=== PATIENT | male | born 1975 | race Two or more races ===

== ENCOUNTER 2018-03-26 09:22 | Emergency (ER) | payer SELFPAY ==
[2018-03-26 09:40] VITALS: BP 122/74; PULSE 72; TEMP 98.3; BMI 27.3
[2018-03-26] MEDS ORDERED: KETOROLAC TROMETHAMINE 60 MG/2 ML VIAL IM ONE (10:04)
[2018-03-26] MEDS ORDERED: KETOROLAC TROMETHAMINE 60 MG/2 ML VIAL ONE (10:09)
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
== END 2018-03-26 10:54 | disposition home or self-care (01) ==
LOC: JERFT 09:22
PROC: 3E0233Z Introduction of Anti-inflammatory into Muscle, Percutaneous Approach (ICD-10-PCS; principal; 2018-03-26)
DX: S40.012A Contusion of left shoulder, initial encounter (principal); S10.93XA Contusion of unspecified part of neck, initial encounter; Y04.2XXA Assault by strike against or bumped into by another person, initial encounter; Y93.89 Activity, other specified; Y92.89 Other specified places as the place of occurrence of the external cause; Y99.8 Other external cause status; Y07.9 Unspecified perpetrator of maltreatment and neglect
CPT/HCPCS: 72050-TC-FY; 73010-TC-FY; 73030-TC-LT-FY; 99281-25

== ENCOUNTER 2018-04-21 10:07 | Emergency (ER) | payer OTHER ==
[2018-04-21 10:13] VITALS: BP 126/78; PULSE 95; TEMP 97.5; BMI 27.3
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
[2018-04-21] MEDS ORDERED: KETOROLAC TROMETHAMINE 60 MG/2 ML VIAL IM ONE (11:04)
[2018-04-21] MEDS ORDERED: DEXAMETHASONE SOD PHOSPHATE 10 MG/1 ML VIAL IM ONE (11:04)
[2018-04-21] MEDS ORDERED: DEXAMETHASONE SOD PHOSPHATE 10 MG/1 ML VIAL ONE (11:05)
[2018-04-21] MEDS ORDERED: KETOROLAC TROMETHAMINE 60 MG/2 ML VIAL ONE (11:05)
== END 2018-04-21 11:23 | disposition home or self-care (01) ==
LOC: JERFT 10:07
PROC: 3E0233Z Introduction of Anti-inflammatory into Muscle, Percutaneous Approach (ICD-10-PCS; principal; 2018-04-21)
PROC: 3E0233Z Introduction of Anti-inflammatory into Muscle, Percutaneous Approach (ICD-10-PCS; 2018-04-21)
DX: M54.6 Pain in thoracic spine (principal); M25.512 Pain in left shoulder; Y04.2XXD Assault by strike against or bumped into by another person, subsequent encounter
CPT/HCPCS: 96372; 99281-25; J1100

== ENCOUNTER 2018-04-24 22:36 | Emergency (ER) | payer OTHER ==
[2018-04-24 22:45] VITALS: BP 126/77; PULSE 74; TEMP 98; BMI 25.0
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
[2018-04-25] MEDS ORDERED: KETOROLAC TROMETHAMINE 60 MG/2 ML VIAL IM ONE (00:05)
[2018-04-25] MEDS ORDERED: LIDOCAINE 5% TOPICAL PATCH TP ONE (00:15)
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
[2018-04-25] MEDS ORDERED: KETOROLAC TROMETHAMINE 60 MG/2 ML VIAL ONE (00:50)
[2018-04-25] MEDS ORDERED: LIDOCAINE 5% TOPICAL PATCH ONE (00:50)
[2018-04-25] MEDS ORDERED: LIDOCAINE PATCH REMOVAL MC SCH (22:00)
== END 2018-04-25 01:20 | disposition home or self-care (01) ==
LOC: JER 22:36
PROC: 3E0233Z Introduction of Anti-inflammatory into Muscle, Percutaneous Approach (ICD-10-PCS; principal; 2018-04-24)
DX: M54.2 Cervicalgia (principal); M25.512 Pain in left shoulder; M54.6 Pain in thoracic spine; Y04.2XXD Assault by strike against or bumped into by another person, subsequent encounter
CPT/HCPCS: 99281-25

== ENCOUNTER 2018-04-27 18:57 | Emergency (ER) | payer OTHER ==
[2018-04-27 19:02] VITALS: BP 130/78; PULSE 82; TEMP 98.4; BMI 25.0
[2018-04-27 19:26] LABS: URINE APPEARANCE CLEAR; URINE BILIRUBIN NEGATIVE (<2.0 mg/dL); URINE COLOR AMBER; URINE GLUCOSE (UA) NEGATIVE (NEGATIVE); URINE KETONE NEGATIVE (NEGATIVE); URINE LEUK ESTERASE NEGATIVE (NEGATIVE); URINE NITRITE POSITIVE (NEGATIVE); URINE PROTEIN NEGATIVE (NEGATIVE); URINE UROBILINOGEN 4.0 E.U/dl mg/dL (0.2-1.0)
[2018-04-27] MEDS ORDERED: KETOROLAC TROMETHAMINE 60 MG/2 ML VIAL IM ONE (19:27)
[2018-04-27] MEDS ORDERED: KETOROLAC TROMETHAMINE 60 MG/2 ML VIAL ONE (19:28)
[2018-04-27] MEDS ORDERED: AZITHROMYCIN 500 MG TABLET PO ONE (19:28)
[2018-04-27] MEDS ORDERED: AZITHROMYCIN 500 MG TABLET ONE (19:32)
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
== END 2018-04-27 20:30 | disposition home or self-care (01) ==
LOC: JERFT 18:57
PROC: 3E02329 Introduction of Other Anti-infective into Muscle, Percutaneous Approach (ICD-10-PCS; principal; 2018-04-27)
PROC: 3E0233Z Introduction of Anti-inflammatory into Muscle, Percutaneous Approach (ICD-10-PCS; 2018-04-27)
DX: N30.00 Acute cystitis without hematuria (principal); M54.5 Low back pain; M25.512 Pain in left shoulder; G89.29 Other chronic pain
CPT/HCPCS: 36415; 81003; 81015; 87086; 87491; 87591; 96372; 99281-25

== ENCOUNTER 2018-04-30 16:40 | Emergency (ER) | payer OTHER ==
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
[2018-04-30 16:58] VITALS: BP 129/89; PULSE 74; TEMP 98; BMI 27.3
--- NOTE | 2018-04-30 17:13 | PDOC ---
History of Present Illness - General Chief Complaint: Hematuria Stated Complaint: BLOOD IN Urinary Time Seen by Provider: 04/30/18 16:53 - History of Present Illness Initial Comments: 04/30/18 17:11 43-year-old male treated for urinary tract infection 3 days ago presents because he dropped his antibiotics in the toilet 2 days ago he's only taken one days worth of Keflex. He's requesting and striction. He continues to have dysuria Past History - Past Medical History Allergies/Adverse Reactions: Allergies Allergy/AdvReac Type Severity Reaction Status Date / Time No Known Allergies Allergy Verified 04/30/18 16:53 Home Medications: Ambulatory Orders Cyclobenzaprine HCl 10 mg PO TID PRN #9 tablet 04/25/18 Meloxicam 15 mg PO DAILY PRN #3 tablet 04/25/18 Cephalexin [Keflex] 500 mg PO BID #14 capsule 04/27/18 Tramadol HCl 50 mg PO Q6H #15 tablet MDD 200 mg 04/27/18 Cephalexin [Keflex] 500 mg PO QID #28 capsule 04/30/18 Gabapentin 600 mg PO ASDIR 04/30/18 Asthma: No Cancer: No Cardiac Disorders: No CVA: No COPD: No DVT: No Dementia: No Hypercholesterolemia: No Kidney Stones: No Liver Disease: No - Surgical History Cholecystectomy: No GI Surgery: No - Immunization History Td Vaccination: Yes Immunization Up to Date: Yes - Suicide/Smoking/Psychosocial Hx Smoking Status: Yes Smoking History: Current every day smoker Number of Cigarettes Smoked Daily: 4 Information on smoking cessation initiated: No Hx Alcohol Use: No Drug/Substance Use Hx: No Substance Use Type: None Review of Systems - Review of Systems : Yes: Burning, Dysuria *Physical Exam - Vital Signs Last Vital Signs Temp Pulse Resp BP Pulse Ox 98.0 F 74 18 129/89 99 04/30/18 16:54 04/30/18 16:54 04/30/18 16:54 04/30/18 16:54 04/30/18 16:54 - Physical Exam Comments: 04/30/18 17:12 HEAD: NC/AT EYES: Conjuntiva clear MS: Full ROM in all joints without edema NEUROLOGIC: No gross sensory or motor deficits, NVID SKIN: Normal color and temperature no lesions or rashes Medical Decision Making - Medical Decision Making 04/30/18 17:12 I refilled his antibiotics and started the course over again, and referred him to urology *DC/Admit/Observation/Transfer Diagnosis at time of Disposition: Hematuria Qualifiers: Hematuria type: unspecified type Qualified Code(s): R31.9 - Hematuria, unspecified - Discharge Dispostion Disposition: HOME Condition at time of disposition: Stable Decision to Admit order: No - Prescriptions Prescriptions: Cephalexin [Keflex] 500 mg PO QID #28 capsule - Referrals Referrals: Renay Piña MD [Primary Care Provider] - - Patient Instructions Printed Discharge Instructions: Urinary Tract Infection Additional Instructions: Return to the emergency room should symptoms worsen or go unresolved and follow- up with urology as scheduled please take the antibiotics and finish the entire course. - Post Discharge Activity
[2018-04-30 17:16] LABS: URINE APPEARANCE CLEAR; URINE BILIRUBIN NEGATIVE (<2.0 mg/dL); URINE COLOR LTYELLOW; URINE GLUCOSE (UA) NEGATIVE (NEGATIVE); URINE KETONE NEGATIVE (NEGATIVE); URINE LEUK ESTERASE NEGATIVE (NEGATIVE); URINE NITRITE NEGATIVE (NEGATIVE); URINE PROTEIN NEGATIVE (NEGATIVE); URINE UROBILINOGEN NEGATIVE mg/dL (0.2-1.0)
== END 2018-04-30 17:44 | disposition home or self-care (01) ==
LOC: JERFT 16:40
DX: N39.0 Urinary tract infection, site not specified (principal); R31.9 Hematuria, unspecified
CPT/HCPCS: 81003; 99281-25

== ENCOUNTER 2018-05-07 10:57 | Emergency (ER) | payer OTHER ==
[2018-05-07 11:09] VITALS: BP 159/60; PULSE 69; TEMP 98.2; BMI 27.3
[2018-05-07 11:46] LABS: URINE APPEARANCE CLEAR; URINE BILIRUBIN NEGATIVE (<2.0 mg/dL); URINE COLOR COLORLESS; URINE GLUCOSE (UA) NEGATIVE (NEGATIVE); URINE KETONE NEGATIVE (NEGATIVE); URINE LEUK ESTERASE NEGATIVE (NEGATIVE); URINE NITRITE NEGATIVE (NEGATIVE); URINE PROTEIN NEGATIVE (NEGATIVE); URINE UROBILINOGEN NEGATIVE mg/dL (0.2-1.0)
[2018-05-07] MEDS ORDERED: AZITHROMYCIN 250 MG TABLET PO ONE (12:07)
[2018-05-07] MEDS ORDERED: AZITHROMYCIN 250 MG TABLET ONE (12:11)
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
== END 2018-05-07 12:19 | disposition home or self-care (01) ==
LOC: JERFT 10:57
DX: R30.0 Dysuria (principal)
CPT/HCPCS: 36415; 81003; 87086; 87491; 87591; 96372; 99281-25

== ENCOUNTER 2018-05-12 08:18 | Emergency (ER) | payer OTHER ==
[2018-05-12 08:26] VITALS: BP 131/74; PULSE 74; TEMP 98; BMI 27.3
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
[2018-05-12 08:56] LABS: URINE APPEARANCE CLEAR; URINE BILIRUBIN NEGATIVE (<2.0 mg/dL); URINE COLOR STRAW; URINE GLUCOSE (UA) NEGATIVE (NEGATIVE); URINE KETONE NEGATIVE (NEGATIVE); URINE LEUK ESTERASE NEGATIVE (NEGATIVE); URINE NITRITE NEGATIVE (NEGATIVE); URINE PROTEIN NEGATIVE (NEGATIVE); URINE UROBILINOGEN NEGATIVE mg/dL (0.2-1.0)
[2018-05-12] MEDS ORDERED: KETOROLAC TROMETHAMINE 60 MG/2 ML VIAL IM ONE (09:15)
[2018-05-12] MEDS ORDERED: KETOROLAC TROMETHAMINE 60 MG/2 ML VIAL ONE (09:17)
== END 2018-05-12 09:34 | disposition home or self-care (01) ==
LOC: JERFT 08:18
PROC: 3E0233Z Introduction of Anti-inflammatory into Muscle, Percutaneous Approach (ICD-10-PCS; principal; 2018-05-12)
DX: M54.5 Low back pain (principal); M25.512 Pain in left shoulder; G89.29 Other chronic pain; V89.2XXS Person injured in unspecified motor-vehicle accident, traffic, sequela
CPT/HCPCS: 81003; 87086; 96372; 99281-25

== ENCOUNTER 2018-05-15 21:38 | Emergency (ER) | payer OTHER ==
--- NOTE | 2018-05-15 21:55 | PDOC ---
Rapid Medical Evaluation Time Seen by Provider: 05/15/18 21:54 Medical Evaluation: Allergies Allergy/AdvReac Type Severity Reaction Status Date / Time No Known Allergies Allergy Verified 05/12/18 08:26 05/15/18 21:54 I have performed a brief in-person evaluation of this patient. The patient presents with a chief complaint of: acute on chronic back pain Pertinent physical exam findings: diffuse tenderness to lower back I have ordered the following: nothing The patient will proceed to the ED for further evaluation. Discharge Disposition - Diagnosis Back pain - Referrals - Patient Instructions - Post Discharge Activity
[2018-05-15 21:58] VITALS: BP 141/85; PULSE 80; TEMP 98.2; BMI 27.3
[2018-05-15] MEDS ORDERED: KETOROLAC TROMETHAMINE 60 MG/2 ML VIAL IM ONE (22:20)
--- NOTE | 2018-05-15 22:21 | PDOC ---
History of Present Illness - General Chief Complaint: Pain Stated Complaint: PAIN Time Seen by Provider: 05/15/18 21:54 - History of Present Illness Initial Comments: 05/15/18 22:19 43-year-old male presents for evaluation of lower back pain times one day he also continue continues to have dysuria despite long courses of antibiotic treatment he has not followed up with urology at this point. He has no loss of bowel bladder function or saddle paresthesias Past History - Past Medical History Allergies/Adverse Reactions: Allergies Allergy/AdvReac Type Severity Reaction Status Date / Time No Known Allergies Allergy Verified 05/15/18 21:58 Home Medications: Ambulatory Orders Gabapentin 600 mg PO ASDIR 04/30/18 Cyclobenzaprine HCl [Flexeril 10 mg] 10 mg PO HS PRN #10 tablet 05/15/18 Ibuprofen [Motrin -] 600 mg PO TID #30 tablet 05/15/18 Asthma: No Cancer: No Cardiac Disorders: No CVA: No COPD: No DVT: No Dementia: No Hypercholesterolemia: No Kidney Stones: No Liver Disease: No Other medical history: chromin back pain - Surgical History Cholecystectomy: No GI Surgery: No - Immunization History Td Vaccination: Yes Immunization Up to Date: Yes - Suicide/Smoking/Psychosocial Hx Smoking Status: Yes Smoking History: Current every day smoker Have you smoked in the past 12 months: Yes Number of Cigarettes Smoked Daily: 2 Information on smoking cessation initiated: No Hx Alcohol Use: No Drug/Substance Use Hx: No Substance Use Type: None Review of Systems - Review of Systems Constitutional: No: Fever : Yes: Burning, Dysuria. No: Discharge Musculoskeletal: Yes: Back Pain *Physical Exam - Vital Signs Last Vital Signs Temp Pulse Resp BP Pulse Ox 98.2 F 80 17 141/85 98 05/15/18 21:56 05/15/18 21:56 05/15/18 21:56 05/15/18 21:56 05/15/18 21:56 - Physical Exam Comments: 05/15/18 22:19 HEAD: NC/AT EYES: Conjuntiva clear MS: Full ROM in all joints without edema NEUROLOGIC: No gross sensory or motor deficits, NVID SKIN: Normal color and temperature no lesions or rashes Lumbar spine skin color and temperature are normal range motion is limited he has diffuse tenderness which seems out of proportion to the examination. Given tenderness to light touch. 5 out of 5 strength in bilateral lower extremities without gross sensorimotor deficits Medical Decision Making - Medical Decision Making 05/15/18 22:20 I have seen this patient multiple times for dysuria, given him antibiotics for a UTI refilled antibiotics that he lost originally and then lost again 2 he presents with the same complaint has not followed up with urology I will check another urinalysis on him to see if he has UTI treat his back pain with Toradol this one time in the ER *DC/Admit/Observation/Transfer Diagnosis at time of Disposition: Back pain, Dysuria - Prescriptions Prescriptions: Cyclobenzaprine HCl [Flexeril 10 mg] 10 mg PO HS PRN #10 tablet PRN Reason: Muscle Spasms Ibuprofen [Motrin -] 600 mg PO TID #30 tablet - Referrals Referrals: Kal Matthews MD [Staff Physician] - Abdulaziz Osborne MD., MD [Staff Physician] - - Patient Instructions Printed Discharge Instructions: Low Back Pain, DI for Low Back Pain Additional Instructions: Return to the emergency room should symptoms worsen or go unresolved please take the anti-inflammatory and muscle relaxer as directed follow-up with spine surgery as well as urology as directed - Post Discharge Activity
[2018-05-15] MEDS ORDERED: KETOROLAC TROMETHAMINE 60 MG/2 ML VIAL ONE (22:22)
[2018-05-15 22:47] LABS: URINE APPEARANCE CLEAR; URINE BILIRUBIN NEGATIVE (<2.0 mg/dL); URINE COLOR STRAW; URINE GLUCOSE (UA) NEGATIVE (NEGATIVE); URINE KETONE NEGATIVE (NEGATIVE); URINE LEUK ESTERASE NEGATIVE (NEGATIVE); URINE NITRITE NEGATIVE (NEGATIVE); URINE PROTEIN NEGATIVE (NEGATIVE); URINE UROBILINOGEN NEGATIVE mg/dL (0.2-1.0)
== END 2018-05-15 22:54 | disposition home or self-care (01) ==
LOC: JERFT 21:38
PROC: 3E0233Z Introduction of Anti-inflammatory into Muscle, Percutaneous Approach (ICD-10-PCS; principal; 2018-05-15)
DX: M54.5 Low back pain (principal)
CPT/HCPCS: 81003; 87086; 99281-25

== ENCOUNTER 2018-05-29 10:39 | Emergency (ER) | payer OTHER ==
[2018-05-29 11:06] VITALS: BMI 27.3
--- NOTE | 2018-05-29 12:40 | PDOC ---
History of Present Illness - General Chief Complaint: Edema Stated Complaint: FOOT INFLAMMATION Time Seen by Provider: 05/29/18 12:37 Past History - Past Medical History Allergies/Adverse Reactions: Allergies Allergy/AdvReac Type Severity Reaction Status Date / Time No Known Allergies Allergy Verified 05/29/18 11:01 Home Medications: Ambulatory Orders Gabapentin 600 mg PO ASDIR 04/30/18 Cyclobenzaprine HCl [Flexeril 10 mg] 10 mg PO HS PRN #10 tablet 05/15/18 Ibuprofen [Motrin -] 600 mg PO TID #30 tablet 05/15/18 Tramadol HCl 50 mg PO BID #10 tablet MDD 2 05/29/18 Asthma: No Cancer: No Cardiac Disorders: No CVA: No COPD: No DVT: No Dementia: No Hypercholesterolemia: No Kidney Stones: No Liver Disease: No Other medical history: DENIES. - Surgical History Cholecystectomy: No GI Surgery: No - Immunization History Td Vaccination: Yes Immunization Up to Date: Yes - Suicide/Smoking/Psychosocial Hx Smoking Status: Yes Smoking History: Never smoked Have you smoked in the past 12 months: Yes Number of Cigarettes Smoked Daily: 2 Hx Alcohol Use: No Drug/Substance Use Hx: No Substance Use Type: None *Physical Exam - Vital Signs Last Vital Signs Temp Pulse Resp BP Pulse Ox 98 F 80 17 108/58 L 98 05/29/18 11:02 05/29/18 11:02 05/29/18 11:02 05/29/18 11:02 05/29/18 11:02 Moderate Sedation - Procedure Monitoring Vital Signs: Procedure Monitoring Vital Signs Temperature 98 F 05/29/18 11:02 Pulse Rate 80 05/29/18 11:02 Respiratory Rate 17 05/29/18 11:02 Blood Pressure 108/58 L 05/29/18 11:02 O2 Sat by Pulse Oximetry (%) 98 05/29/18 11:02 ED Treatment Course - LABORATORY CBC & Chemistry Diagram: 05/29/18 14:00 05/29/18 14:00 *DC/Admit/Observation/Transfer Diagnosis at time of Disposition: Edema Qualifiers: Edema type: unspecified Qualified Code(s): R60.9 - Edema, unspecified Low back pain Qualifiers: Chronicity: chronic Back pain laterality: bilateral Sciatica presence: without sciatica Qualified Code(s): M54.5 - Low back pain; G89.29 - Other chronic pain - Discharge Dispostion Disposition: HOME Condition at time of disposition: Stable Decision to Admit order: No - Referrals Referrals: Renay Piña MD [Primary Care Provider] - - Patient Instructions Printed Discharge Instructions: DI for Low Back Pain, DI for Peripheral Edema - - Bilateral Additional Instructions: You were evaluated today for your swelling to your legs. Stop taking the motrin as this can cause swelling. Your lab work, and chest x-ray are normal, your ultrasounds did not show any blood clots in the legs. Please keep her legs elevated when resting to help reduce the swelling. Please also use Sesar wraps to help reduce swelling. Please follow up with her primary care doctor tomorrow. You may take Flexeril for your back pain. Take medications night and do not drive or use alcohol after taking the medication as it may make you sleepy. You may also take tramadol. Take one pill twice a day as needed for pain. Do not drink or drive after taking this medication as it may make you sleepy. Return to the emergency department for any new or worsening symptoms. Usted fue evaluado hoy por noriega hinchazn en las piernas. Deje de papito el motrin ya que esto puede causar hinchazn. El trabajo de laboratorio y la radiografa de trax son normales, los ultrasonidos no mostraron cogulos de gabriele en las piernas. Por favor, mantenga lisa piernas elevadas cuando descansa para ayudar a reducir la hinchazn. Por favor tambin use Sesar Wraps para ayudar a reducir la hinchazn. Por favor richar un seguimiento con noriega mdico de atencin primaria maana. Puede papito Flexeril para noriega dolor de espalda. [place] los medicamentos por la noche y no maneje ni use alcohol despus de papito el medicamento, ya que puede causarle sueo. Tambin puede papito tramadol. [place] declan pastilla dos veces al da segn sea necesario para el dolor. No albin ni maneje despus de papito sebastian medicamento, ya que puede causarle sueo. Regrese al departamento de emergencias para cualquier sntoma nuevo o que empeore. - Post Discharge Activity Forms/Work/School Notes: Back to Work
[2018-05-29] MEDS ORDERED: IBUPROFEN 400 MG TABLET (FP) PO ONE ×2 (13:07→13:35)
[2018-05-29 14:11] LABS: BASO % 0.8 % (0-2.0); EOS % 2.5 % (0-4.5); HEMATOCRIT 38.8 % (35.4-49); LYMPH % 36.6 % (8-40); MCH 33.9 pg (25.7-33.7); MCHC 36.1 g/dl (32.0-35.9); MEAN CELL VOLUME 93.7 fl (80-96); MONO % 9.3 % (3.8-10.2); NEUT % 50.8 % (42.8-82.8); PLATELET COUNT 295 K/MM3 (134-434); RBC 4.14 M/mm3 (4.00-5.60); RDW 13.5 % (11.9-15.9); WHITE BLOOD COUNT 6.9 K/mm3 (4.0-10.0)
[2018-05-29 14:31] LABS: ALBUMIN 3.5 g/dl (3.4-5.0); ALK PHOS 95 U/L (45-117); ANION GAP 4 MMOL/L (8-16); BILIRUBIN,TOTAL 0.2 mg/dL (0.2-1); BLOOD UREA NITROGEN 14 mg/dL (7-18); CALCIUM 8.7 mg/dL (8.5-10.1); CHLORIDE 103 mmol/L (98-107); CO2 31 mmol/L (21-32); CREATININE 0.9 mg/dL (0.55-1.3); GLUCOSE,RANDOM 100 mg/dL (74-106); POTASSIUM 3.9 mmol/L (3.5-5.1); SGOT/AST 31 U/L (15-37); SGPT/ALT 50 U/L (13-61); SODIUM 139 mmol/L (136-145); TOT PROT 6.7 g/dl (6.4-8.2)
[2018-05-29 14:59] LABS: URINE APPEARANCE CLEAR; URINE BILIRUBIN NEGATIVE (<2.0 mg/dL); URINE COLOR LTYELLOW; URINE GLUCOSE (UA) NEGATIVE (NEGATIVE); URINE KETONE NEGATIVE (NEGATIVE); URINE LEUK ESTERASE NEGATIVE (NEGATIVE); URINE NITRITE NEGATIVE (NEGATIVE); URINE PROTEIN NEGATIVE (NEGATIVE); URINE UROBILINOGEN NEGATIVE mg/dL (0.2-1.0)
[2018-05-29 17:51] VITALS: BP 104/50; PULSE 60; TEMP 98.3
== END 2018-05-29 17:51 | disposition home or self-care (01) ==
LOC: JER 10:39
DX: R60.0 Localized edema (principal); M54.5 Low back pain; G89.29 Other chronic pain
CPT/HCPCS: 36415; 71046-TC-FY; 80053; 81003; 83880; 85025; 93970-TC; 99283-25

== ENCOUNTER 2018-06-02 12:53 | Emergency (ER) | payer OTHER ==
[2018-06-02 13:16] VITALS: BP 108/51; PULSE 64; TEMP 97.1; BMI 27.3
--- NOTE | 2018-06-02 13:25 | PDOC ---
History of Present Illness - General Chief Complaint: Edema Stated Complaint: SWELLING Time Seen by Provider: 06/02/18 13:23 - History of Present Illness Initial Comments: 06/02/18 13:25 Mr. Nati Vivar is a 43 yo male w/ pmh of chronic back pain previously evaluated 05/29 for leg pain and edema who presents for evaluation of same process. Patient reports he has had continued leg pain and swelling for 1 month despite taking OTC pain medicine and muscle relaxers. Previous labs non- contributory. Patient follows-up with PCP Dionte. The patient denies chest pain, shortness of breath, headache and dizziness. Denies fever, chills, nausea, vomit, diarrhea and constipation. Denies dysuria, frequency, urgency and hematuria. Past History - Past Medical History Allergies/Adverse Reactions: Allergies Allergy/AdvReac Type Severity Reaction Status Date / Time No Known Allergies Allergy Verified 06/02/18 13:16 Home Medications: Ambulatory Orders Gabapentin 600 mg PO TID 04/30/18 Cyclobenzaprine HCl [Flexeril 10 mg] 10 mg PO HS PRN #10 tablet 05/15/18 Ibuprofen [Motrin -] 600 mg PO TID #30 tablet 05/15/18 Tramadol HCl 50 mg PO BID #10 tablet MDD 2 05/29/18 Furosemide [Lasix] 20 mg PO DAILY #5 tablet 06/02/18 Asthma: No Cancer: No Cardiac Disorders: No CVA: No COPD: No DVT: No Dementia: No Hypercholesterolemia: No Kidney Stones: No Liver Disease: No - Surgical History Cholecystectomy: No GI Surgery: No - Immunization History Td Vaccination: Yes Immunization Up to Date: Yes - Suicide/Smoking/Psychosocial Hx Smoking Status: Yes Smoking History: Never smoked Have you smoked in the past 12 months: No Number of Cigarettes Smoked Daily: 2 Information on smoking cessation initiated: No Hx Alcohol Use: No Drug/Substance Use Hx: No Substance Use Type: None Review of Systems - Review of Systems Comments:: 06/02/18 14:57 GENERAL/CONSTITUTIONAL: No fever or chills. No weakness. HEAD, EYES, EARS, NOSE AND THROAT: No change in vision. No ear pain or discharge. No sore throat. CARDIOVASCULAR: No chest pain or shortness of breath RESPIRATORY: No cough, wheezing, or hemoptysis. GASTROINTESTINAL: No nausea, vomiting, diarrhea or constipation. GENITOURINARY: No dysuria, frequency, or change in urination. MUSCULOSKELETAL: +Bilateral lower extremity swelling w/ constant pain x1 month. +Chronic low back pain. SKIN: No rash NEUROLOGIC: No headache, vertigo, loss of consciousness, or change in strength/ sensation. ENDOCRINE: No increased thirst. No abnormal weight change HEMATOLOGIC/LYMPHATIC: No anemia, easy bleeding, or history of blood clots. ALLERGIC/IMMUNOLOGIC: No hives or skin allergy. *Physical Exam - Vital Signs Last Vital Signs Temp Pulse Resp BP Pulse Ox 97.1 F L 64 16 108/51 L 100 06/02/18 13:12 06/02/18 13:12 06/02/18 13:12 06/02/18 13:12 06/02/18 13:12 - Physical Exam Comments: 06/02/18 14:58 GENERAL: Awake, alert, and fully oriented, in no acute distress HEAD: No signs of trauma, normocephalic, atraumatic EYES: PERRLA, EOMI, sclera anicteric, conjunctiva clear ENT: Auricles normal inspection, hearing grossly normal, nares patent, oropharynx clear without exudates. Moist mucosa NECK: Normal ROM, supple, no lymphadenopathy, JVD, or masses LUNGS: No distress, speaks full sentences, clear to auscultation bilaterally HEART: Regular rate and rhythm, normal S1 and S2, no murmurs, rubs or gallops, peripheral pulses normal and equal bilaterally. ABDOMEN: Soft, nontender, normoactive bowel sounds. No guarding, no rebound. No masses EXTREMITIES: +2+ Pedal edema noted bilaterally. Otherwise normal inspection, Normal range of motion. No clubbing or cyanosis. NEUROLOGICAL: Cranial nerves II through XII grossly intact. Normal speech, normal gait, no focal sensorimotor deficits SKIN: Warm, Dry, normal turgor, no rashes or lesions noted. Moderate Sedation - Procedure Monitoring Vital Signs: Procedure Monitoring Vital Signs Temperature 97.1 F L 06/02/18 13:12 Pulse Rate 64 06/02/18 13:12 Respiratory Rate 16 06/02/18 13:12 Blood Pressure 108/51 L 06/02/18 13:12 O2 Sat by Pulse Oximetry (%) 100 06/02/18 13:12 Medical Decision Making - Medical Decision Making 06/02/18 14:58 Mr. Nati Vviar is a 43 yo male w/ pmh as described who presents for evaluation of chronic leg pain. Upon repeat interview patient endorses eating a lot of salty foods and is often sedentary. Given recent full workup at this hospital w/ grossly negative labs and negative bilateral LE US, no additional testing at this time. Patient given education information as well as trial of PO lasix sent to patient's pharmacy. Patient will follow-up with PCP for further evaluation. Patient verbalized understanding and agreement and will comply. Discharging to home. *DC/Admit/Observation/Transfer Diagnosis at time of Disposition: Leg swelling - Discharge Dispostion Disposition: HOME - Prescriptions Prescriptions: Furosemide [Lasix] 20 mg PO DAILY #5 tablet - Referrals Referrals: Renay Piña MD [Primary Care Provider] - - Patient Instructions Printed Discharge Instructions: DI for Leg Pain Additional Instructions: You were evaluated today in the emergency room for your leg swelling and pain. No concerning findings were found at this time. We sent a trial medication to your pharmacy; please take all medications as proscribed. You should also cut down on salty foods. You may elevate your legs above your heart while sitting for further relief. Follow-up this week with primary care physician. Return to ER if any fever, chills, increase in pain, or other concerning symptoms. - Post Discharge Activity
--- NOTE | 2018-06-02 14:08 | PDOC ---
Attending Attestation - Resident Resident Name: Matheus Tierney - ED Attending Attestation I have performed the following: I have examined & evaluated the patient, The case was reviewed & discussed with the resident, I agree w/resident's findings & plan, Exceptions are as noted - HPI HPI: 06/02/18 17:58 The patient is a 43 year old male, with a significant past medical history of chronic back pain, who presents to the emergency department with continued bilateral lower extremity pain and swelling since he was evaluated in the ED 4 days ago for similar complaints. He reports one week total with unchanged pain and swelling to the areas below his knees bilaterally. He states he has been taking muscle relaxants without relief of pain. He reportedly had US of his lower extremities which was negative for DVTs. He states he elevates his legs without relief of symptoms. He states he has an appt with Dr. Rapp on . The patient denies chest pain, shortness of breath, orthpnea, headache and dizziness. The patient denies fever, chills, nausea, vomit, diarrhea and constipation. The patient denies dysuria, frequency, urgency and hematuria. Allergies: NKDA PCP - Dr. Rapp - Physicial Exam PE: 06/02/18 18:02 General: NAD, well appearing PULM: cta b/l, no wheezing/rales CARD: no mrg, rrr abd: soft nontender LE: b/l pitting edmea 3+ b/l symmetric, no calf tenderness, neg homans sign - Medical Decision Making 06/02/18 14:07 43y M no pmhx presents with complaint of leg pain and leg swelling, was recently evaluated in the ED for leg pain/swelling. Patient states he has been having the swelling for the past week with pressure like pain. sypmtmos have not resolved so he represents. The patient denies any shortness of breath, cough, hemoptysis. States does eat out frequently. A negative workup including normal liver function tests, PE, normal renal function 5 days ago. No signs of a DVT. Recommended the patient change his diet to decrease eating out, elevate his legs above his heart when sleeping we'll give the patient a couple of doses of Lasix and will have his follow-up with his primary care. A portion of this note was documented by scribe services under my direction. I have reviewed the details of the note, within reason, and agree with the documentation with the following case summary and management plan written by me
== END 2018-06-02 15:32 | disposition home or self-care (01) ==
LOC: JER 12:53
DX: M79.89 Other specified soft tissue disorders (principal); G89.29 Other chronic pain
CPT/HCPCS: 99282-25

== ENCOUNTER 2018-06-08 05:08 | Emergency (ER) | payer OTHER ==
[2018-06-08 05:30] VITALS: BMI 27.3
[2018-06-08] MEDS ORDERED: IBUPROFEN 400 MG TABLET (FP) PO ONE ×2 (05:43→05:46)
[2018-06-08] MEDS ORDERED: LIDOCAINE 5% TOPICAL PATCH TP ONE (05:43)
[2018-06-08] MEDS ORDERED: LIDOCAINE 5% TOPICAL PATCH ONE (05:47)
--- NOTE | 2018-06-08 05:53 | PDOC ---
History of Present Illness - General Chief Complaint: Back Pain Stated Complaint: PAIN Time Seen by Provider: 06/08/18 05:17 History Source: Patient Exam Limitations: No Limitations Past History - Past Medical History Allergies/Adverse Reactions: Allergies Allergy/AdvReac Type Severity Reaction Status Date / Time No Known Allergies Allergy Verified 06/02/18 13:16 Home Medications: Ambulatory Orders Gabapentin 600 mg PO TID 04/30/18 Cyclobenzaprine HCl [Flexeril 10 mg] 10 mg PO HS PRN #10 tablet 05/15/18 Ibuprofen [Motrin -] 600 mg PO TID #30 tablet 05/15/18 Tramadol HCl 50 mg PO BID #10 tablet MDD 2 05/29/18 Furosemide [Lasix] 20 mg PO DAILY #5 tablet 06/02/18 Lidocaine 5% Patch [Lidoderm -] 1 patch TP DAILY #30 patch 06/08/18 Asthma: No Cancer: No Cardiac Disorders: No CVA: No COPD: No DVT: No Dementia: No HTN: No Hypercholesterolemia: No Kidney Stones: No Liver Disease: No - Surgical History Cholecystectomy: No GI Surgery: No - Immunization History Td Vaccination: Yes Immunization Up to Date: Yes - Suicide/Smoking/Psychosocial Hx Smoking Status: Yes Smoking History: Never smoked Have you smoked in the past 12 months: No Number of Cigarettes Smoked Daily: 2 Hx Alcohol Use: No Drug/Substance Use Hx: No Substance Use Type: None *Physical Exam - Vital Signs Last Vital Signs Temp Pulse Resp BP Pulse Ox 98.6 F 76 18 143/91 99 06/08/18 05:10 06/08/18 05:10 06/08/18 05:10 06/08/18 05:10 06/08/18 05:10 - Physical Exam General Appearance: No: Apparent Distress Respiratory/Chest: positive: Lungs Clear, Normal Breath Sounds. negative: Respiratory Distress Cardiovascular: positive: Regular Rhythm, Regular Rate, S1, S2. negative: Murmur Gastrointestinal/Abdominal: positive: Normal Bowel Sounds, Soft. negative: Tender, Distended, Guarding, Rebound Musculoskeletal: positive: Other (Mild TTP along lumbar spine and paravertebral muscles, patient able to flex spine ). negative: CVA Tenderness Neurologic: positive: Fully Oriented, Alert, Normal Mood/Affect, Motor Strength 5/5, Other (Negative SLR test, patient noted to be ambulating in ED). negative : Numbness, Sensory Deficit Moderate Sedation - Procedure Monitoring Vital Signs: Procedure Monitoring Vital Signs Temperature 98.6 F 06/08/18 05:10 Pulse Rate 76 06/08/18 05:10 Respiratory Rate 18 06/08/18 05:10 Blood Pressure 143/91 06/08/18 05:10 O2 Sat by Pulse Oximetry (%) 99 06/08/18 05:10 Medical Decision Making - Medical Decision Making 43 y/o M hx of chronic back pain presents with acute on chronic back pain from today. Of note, patient with multiple visits to ED for similar complaints. Mentions he was sitting down all day at work and that aggravated his back. Denies trauma, heavy lifting. States he did not take any pain medication at home ; he only took Gabapentin and cannabis (uses it for medical reasons), which did not help. Denies fever, sob, cp, abd pain, n/v, urinary complaints, numbness/ tingling of extremities, bowel/bladder incontinence, saddle/groin paresthesia. Patient had lumbar MRI 06/2017 which showed degenerative disc disease along with nerve root impingement at various levels. Patient has a spine doctor - Dr. Silver Lindquist, who he has been following up with; last saw a month ago. Has received steroid shots in the past (last received 3 months ago) Patient noted to be able to ambulate in ED, able to move spine in no acute distress During interview, patient asks if he can just sleep in the ED for 3-4 hours. Acute on chronic back pain; unlikely cauda equina, spinal fracture Plan: Motrin, Lidocaine patch; d/c with f/u with his PCP and spine doctor 06/08/18 05:56 *DC/Admit/Observation/Transfer Diagnosis at time of Disposition: Acute exacerbation of chronic low back pain - Discharge Dispostion Disposition: HOME Condition at time of disposition: Improved Decision to Admit order: No - Prescriptions Prescriptions: Lidocaine 5% Patch [Lidoderm -] 1 patch TP DAILY #30 patch - Referrals Referrals: Renay Piña MD [Primary Care Provider] - 3 days - Patient Instructions Printed Discharge Instructions: Managing Chronic Low Back Pain, DI for Low Back Pain Additional Instructions: Thank you for choosing [facility]. It was a pleasure taking care of you. You may take Motrin 600 mg every 4 hours by mouth as needed for mild to moderate pain. Take Motrin with food. Take your Flexeril as needed for muscle spasms Continue follow-up with your spine doctor. Return to the Emergency Department if your symptoms worsen or persist, you have fever, shortness of breath, chest pain, severe abdominal pain, vomiting, weakness of extremities (arms and/or legs), numbness around groin, unable to control bowel/bladder movements or other concerning symptoms. - Post Discharge Activity
[2018-06-08 06:59] VITALS: BP 138/88; PULSE 80; TEMP 98
[2018-06-08] MEDS ORDERED: LIDOCAINE PATCH REMOVAL MC SCH (22:00)
== END 2018-06-08 06:59 | disposition home or self-care (01) ==
LOC: JER 05:08
DX: M54.5 Low back pain (principal); G89.29 Other chronic pain
CPT/HCPCS: 99282-25

== ENCOUNTER 2018-11-10 04:08 | Emergency (ER) | payer OTHER ==
[2018-11-10 04:54] VITALS: BP 125/78; PULSE 72; TEMP 98.4; BMI 27.3
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
[2018-11-10] MEDS ORDERED: ACETAMINOPHEN 500 MG TABLET (FP) PO ONE (05:01)
[2018-11-10] MEDS ORDERED: ACETAMINOPHEN 325 MG TABLET (FP) ONE (05:12)
[2018-11-10 05:27] LABS: BASO % 1.2 % (0-2.0); EOS % 1.6 % (0-4.5); HEMATOCRIT 45.5 % (35.4-49); HEMOGLOBIN 16.2 GM/dL (11.7-16.9); LYMPH % 25.1 % (8-40); MCHC 35.6 g/dl (32.0-35.9); MEAN CELL VOLUME 92.7 fl (80-96); MEAN PLT VOLUME 7.8 fl (7.5-11.1); MONO % 9.8 % (3.8-10.2); NEUT % 62.3 % (42.8-82.8); PLATELET COUNT 357 K/MM3 (134-434); RBC 4.91 M/mm3 (4.00-5.60); WHITE BLOOD COUNT 11.6 K/mm3 (4.0-10.0)
[2018-11-10 05:51] LABS: PH,URINE 6.5 (5.0-8.0); URINE APPEARANCE CLEAR; URINE BILIRUBIN NEGATIVE (NEGATIVE); URINE COLOR YELLOW; URINE GLUCOSE (UA) NEGATIVE (NEGATIVE); URINE KETONE NEGATIVE (NEGATIVE); URINE LEUK ESTERASE NEGATIVE (NEGATIVE); URINE NITRITE NEGATIVE (NEGATIVE); URINE PROTEIN NEGATIVE (NEGATIVE); URINE UROBILINOGEN 0.2 mg/dL (0.2-1.0)
[2018-11-10 06:39] LABS: CALCIUM 9.6 mg/dL (8.5-10.1); CREATININE 0.7 mg/dL (0.55-1.3); POTASSIUM 4.6 mmol/L (3.5-5.1)
[2018-11-10] MEDS ORDERED: KETOROLAC TROMETHAMINE 60 MG/2 ML VIAL IM ONE (06:49)
[2018-11-10] MEDS ORDERED: KETOROLAC TROMETHAMINE 60 MG/2 ML VIAL ONE (07:13)
== END 2018-11-10 07:25 | disposition home or self-care (01) ==
LOC: JER 04:08
PROC: 3E0233Z Introduction of Anti-inflammatory into Muscle, Percutaneous Approach (ICD-10-PCS; principal; 2018-11-10)
DX: M54.5 Low back pain (principal)
CPT/HCPCS: 36415; 80048; 81003; 85025; 87086; 96372; 99283-25

== ENCOUNTER 2018-12-13 12:21 | Emergency (ER) | payer OTHER ==
[2018-12-13 12:44] VITALS: BP 142/93; PULSE 73; TEMP 98; BMI 27.2
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
[2018-12-13] MEDS ORDERED: KETOROLAC TROMETHAMINE 30 MG/1 ML VIAL IM ONE (13:22)
[2018-12-13] MEDS ORDERED: KETOROLAC TROMETHAMINE 30 MG/1 ML VIAL ONE (13:27)
--- NOTE | 2018-12-13 13:28 | PDOC ---
History of Present Illness - General Chief Complaint: Back Pain Stated Complaint: LWR BACK PAIN Time Seen by Provider: 12/13/18 12:38 History Source: Patient - History of Present Illness Initial Comments: 12/13/18 13:24 Chief complaint: Chronic back pain Patient is a 43-year-old male with history of chronic back problems no other significant medical issues who was seen by a back specialist. Patient states that his pain has gotten a little worse and his doctor told him to come to the ER for a pain shot. Patient is undergoing therapy. Patient denies any new neurological symptoms, numbness, incontinence or saddle anesthesia. Patient is ambulating at baseline with his cane. GENERAL/CONSTITUTIONAL: No fever, weakness. dizziness HEAD, EYES, EARS, NOSE AND THROAT: No change in vision. No ear pain or discharge. No sore throat. CARDIOVASCULAR: No chest pain RESPIRATORY: No shortness of breath or cough GASTROINTESTINAL: No pain, nausea, vomiting, diarrhea or constipation GENITOURINARY: No dysuria MUSCULOSKELETAL: No neck + back pain SKIN: No rash NEUROLOGIC: No headache, vertigo, loss of consciousness, or loss of sensation. GENERAL: The patient is awake, alert, and fully oriented, in no acute distress. HEAD: Normal with no signs of trauma. EYES: Pupils equal, round and reactive to light, sclera anicteric, conjunctiva clear. ENT: pharynx: no erythema, no exudate, uvula midline NECK: supple CHEST: clear, nontender, rr ABD: soft, nontender EXTREMITIES: Normal range of motion, no edema. NEUROLOGICAL: Normal speech, strength 5/5 bilaterally, nv intact. SKIN: Warm, Dry Past History - Past Medical History Allergies/Adverse Reactions: Allergies Allergy/AdvReac Type Severity Reaction Status Date / Time No Known Allergies Allergy Verified 12/13/18 12:40 Home Medications: Ambulatory Orders Gabapentin 600 mg PO TID 04/30/18 Cyclobenzaprine HCl [Flexeril 10 mg] 10 mg PO HS PRN #10 tablet 05/15/18 Ibuprofen [Motrin -] 600 mg PO TID #30 tablet 05/15/18 Tramadol HCl 50 mg PO BID #10 tablet MDD 2 05/29/18 Furosemide [Lasix] 20 mg PO DAILY #5 tablet 06/02/18 Lidocaine 5% Patch [Lidoderm -] 1 patch TP DAILY #30 patch 06/08/18 Asthma: No Cancer: No Cardiac Disorders: No CVA: No COPD: No DVT: No Dementia: No HTN: No Hypercholesterolemia: No Kidney Stones: No Liver Disease: No - Surgical History Cholecystectomy: No GI Surgery: No - Immunization History Td Vaccination: Yes Immunization Up to Date: Yes - Suicide/Smoking/Psychosocial Hx Smoking Status: Yes Smoking History: Unknown if ever smoked Have you smoked in the past 12 months: No Number of Cigarettes Smoked Daily: 2 Hx Alcohol Use: No Drug/Substance Use Hx: No Substance Use Type: None *Physical Exam - Vital Signs Last Vital Signs Temp Pulse Resp BP Pulse Ox 98 F 73 18 142/93 98 12/13/18 12:41 12/13/18 12:41 12/13/18 12:41 12/13/18 12:41 12/13/18 12:41 Medical Decision Making - Medical Decision Making 12/13/18 13:25 43-year-old male with chronic back problems who is been to the ER before for similar complaints requesting shot of pain medicine after speaking to his spine doctor. He also therapy, is on baseline meds and has had a shot and it is back 4 months ago that didn't help. Patient has no new neurological symptoms, weakness, incontinence or saddle anesthesia. We'll give him a shot of Toradol 30 mg im. *DC/Admit/Observation/Transfer Diagnosis at time of Disposition: Chronic back pain Qualifiers: Back pain location: low back pain Back pain laterality: unspecified Sciatica presence: without sciatica Qualified Code(s): M54.5 - Low back pain - Discharge Dispostion Disposition: HOME Condition at time of disposition: Stable Decision to Admit order: No - Referrals - Patient Instructions Printed Discharge Instructions: DI for Low Back Pain Additional Instructions: No heavy lifting or bending Into knee taking her regular medicines as prescribed by her back doctor Return to the nearest ER if numbness, weakness, severe pain, problems with urinating or having bowel movements. Call back doctor today for an appointment for further evaluation - Post Discharge Activity
== END 2018-12-13 13:32 | disposition home or self-care (01) ==
LOC: JERFT 12:21
PROC: 3E0233Z Introduction of Anti-inflammatory into Muscle, Percutaneous Approach (ICD-10-PCS; principal; 2018-12-13)
DX: M54.5 Low back pain (principal); G89.29 Other chronic pain; V49.9XXS Car occupant (driver) (passenger) injured in unspecified traffic accident, sequela
CPT/HCPCS: 96372; 99281-25

== ENCOUNTER 2019-03-17 07:56 | Emergency (ER) | payer OTHER ==
[2019-03-17 08:05] VITALS: BP 143/89; PULSE 89; TEMP 97.4; BMI 29.6
== END 2019-03-17 08:15 | disposition left against medical advice (07) ==
LOC: JER 07:56 → JERFT 07:56
DX: Z53.21 Procedure and treatment not carried out due to patient leaving prior to being seen by health care provider (principal)
CPT/HCPCS: 99281-25

== ENCOUNTER 2021-08-15 09:34 | Emergency (ER) | payer OTHER ==
[2021-08-15 10:13] VITALS: BP 128/68; PULSE 55; TEMP 97.5; BMI 27.3
[2021-08-16 07:10] LABS: SARS-CoV-2 NAA Not Detected (Not Detected)
== END 2021-08-15 13:46 | disposition home or self-care (01) ==
LOC: JER 09:34
DX: J03.90 Acute tonsillitis, unspecified (principal)
CPT/HCPCS: 87651; 87804; 99283-25; C9803; U0003; U0005

== ENCOUNTER 2022-02-22 07:02 | Emergency (ER) | payer OTHER ==
[2022-02-22 07:38] VITALS: BP 122/74; PULSE 68; RESP 18; TEMP 97.9; BMI 26.6
[2022-02-22] MEDS ORDERED: KETOROLAC TROMETHAMINE 30 MG/1 ML VIAL IM ONE (08:36)
[2022-02-22] MEDS ORDERED: LIDOCAINE 5% TOPICAL PATCH TP ONE (08:37)
[2022-02-22] MEDS ORDERED: CYCLOBENZAPRINE HCL 10 MG TABLET (FP) PO ONE (08:37)
[2022-02-22] MEDS ORDERED: LIDOCAINE 5% TOPICAL PATCH ONE (08:38)
[2022-02-22] MEDS ORDERED: CYCLOBENZAPRINE HCL 10 MG TABLET (FP) ONE (08:39)
[2022-02-22] MEDS ORDERED: KETOROLAC TROMETHAMINE 30 MG/1 ML VIAL ONE (08:39)
[2022-02-22] MEDS ORDERED: LIDOCAINE PATCH REMOVAL MC SCH (22:00)
== END 2022-02-22 09:42 | disposition home or self-care (01) ==
LOC: JERFT 07:02 → JER 07:02 → JERFT 09:42
PROC: 3E0233Z Introduction of Anti-inflammatory into Muscle, Percutaneous Approach (ICD-10-PCS; principal; 2022-02-22)
DX: M25.512 Pain in left shoulder (principal); M54.50 Low back pain, unspecified
CPT/HCPCS: 72070-TC-FY; 72100-TC-FY; 73030-TC-LT-FY; 99285-25

== ENCOUNTER 2022-03-12 12:09 | Emergency (ER) | payer OTHER ==
[2022-03-12 12:14] VITALS: BP 129/81; PULSE 89; RESP 18; TEMP 98.4; BMI 28.1
[2022-03-12] MEDS ORDERED: LIDOCAINE 5% TOPICAL PATCH TP ONE (14:16)
[2022-03-12] MEDS ORDERED: KETOROLAC TROMETHAMINE 30 MG/1 ML VIAL IM ONE (14:16)
[2022-03-12] MEDS ORDERED: METHOCARBAMOL 500 MG TABLET PO ONE (14:16)
[2022-03-12] MEDS ORDERED: KETOROLAC TROMETHAMINE 30 MG/1 ML VIAL ONE (14:27)
[2022-03-12] MEDS ORDERED: METHOCARBAMOL 500 MG TABLET ONE (14:27)
[2022-03-12] MEDS ORDERED: LIDOCAINE 5% TOPICAL PATCH ONE (14:27)
[2022-03-12] MEDS ORDERED: LIDOCAINE PATCH REMOVAL MC SCH (22:00)
== END 2022-03-12 18:23 | disposition home or self-care (01) ==
LOC: JERFT 12:09
PROC: 3E0233Z Introduction of Anti-inflammatory into Muscle, Percutaneous Approach (ICD-10-PCS; principal; 2022-03-12)
DX: M54.50 Low back pain, unspecified (principal); M25.512 Pain in left shoulder; V89.2XXA Person injured in unspecified motor-vehicle accident, traffic, initial encounter; Y92.9 Unspecified place or not applicable
CPT/HCPCS: 72100-TC-FY; 73030-TC-LT-FY; 73200-TC-RT; 99284-25